=== PATIENT | female | born 1985 | race African-American/Black ===

== ENCOUNTER 2018-01-30 20:02 | Emergency (ER) | payer OTHER ==
[2018-01-30] MEDS: LIDOCAINE 4% CR TOP (21:48)
[2018-01-30] MEDS: LIDOCAINE 1% (MDV) 10 ML INJ INJ (21:48)
[2018-01-30] MEDS: HYDROCODONE/APAP (5/325) TAB PO (22:08)
[2018-01-30] MEDS: DIPHTH/TET/ACEL PERTUSS (ADULT) 0.5 ML VIAL IM (22:09)
[2018-01-30] MEDS: STERILE WATER 1L IRRIG BTL IRR (22:10)
== END 2018-01-30 22:43 | disposition home or self-care (01) ==
LOC: FTE 20:02
DX: S61.211A Laceration without foreign body of left index finger without damage to nail, initial encounter (principal); W26.9XXA Contact with unspecified sharp object(s), initial encounter; Y92.000 Kitchen of unspecified non-institutional (private) residence as the place of occurrence of the external cause; Z23 Encounter for immunization
CPT/HCPCS: 12001; 90471; 90715; 99283-25

== ENCOUNTER 2018-02-06 11:48 | Emergency (ER) | payer OTHER | END 2018-02-06 14:03 | disposition home or self-care (01) | LOC: FTE 11:48 | DX: N76.0 Acute vaginitis (principal); Z48.02 Encounter for removal of sutures | CPT/HCPCS: 99283; Z7502 ==